=== PATIENT | female | born 1995 | race American Indian/Alaskan Native ===

== ENCOUNTER 2019-07-27 20:45 | Emergency (ER) | payer OTHER ==
[2019-07-27 23:09] VITALS: BP 120/73
--- NOTE | 2019-07-28 04:31 | Emergency Department Report ---
ED Headache HPI - General Chief Complaint: Headache Stated Complaint: SEEING BLACK DOTS/HEADACHE/NAUSEA/DIZZINESS Source: patient Exam Limitations: no limitations - History of Present Illness Initial Comments: Patient is a A2 25-year-old -[place] female who is approximately 20 weeks gestation and who has no past medical history and who presents to the ED with complaint of acute onset persistent severe intermittent bitemporal headache with nausea and vomiting and blurry vision for the last 8 hours. Patient states that the headache has been intermittent and that she has not taken any med ication at home prior to arrival in the ED. Patient states that the headache is since resolved as well as nausea and vomiting. Patient denies vaginal bleeding, abdominal pain, dizziness, vision loss, fall, traumatic injury, neck pain, chest pain, shortness of breath, fever, chills, cough or sore throat. Timing/Duration: constant, waxing and waning, other (8 hours) Quality: severe, constant Head Injury Location: temporal Recent Head Trauma: no recent headache/trauma Modifying Factors: improves with: other (20 weeks gestation) Associated Symptoms: denies symptoms, nausea/vomiting, vision changes (blurry vision). denies: confusion, fatigue, facial pain, fever/chills, flushing, loss of consciousness, nasal congestion, nasal drainage, numbness in legs/feet, seizures, sinus infection, stiff neck Allergies/Adverse Reactions: Allergies No Known Allergies Allergy (Verified 07/27/19 23:09) Home Medications: Ambulatory Orders Acetaminophen [Mapap] 500 mg PO Q6H PRN #30 tablet 07/28/19 Promethazine [Phenergan] 25 mg PO Q6HR PRN #30 tab 07/28/19 ED Review of Systems ROS: Stated complaint: SEEING BLACK DOTS/HEADACHE/NAUSEA/DIZZINESS Other details as noted in HPI Constitutional: denies: chills, fever Eyes: denies: eye pain, eye discharge, vision change ENT: denies: ear pain, throat pain Respiratory: denies: cough, shortness of breath, wheezing Cardiovascular: denies: chest pain, palpitations Endocrine: no symptoms reported Gastrointestinal: nausea, vomiting. denies: abdominal pain, diarrhea Genitourinary: denies: urgency, dysuria, discharge Musculoskeletal: denies: back pain, joint swelling, arthralgia Skin: denies: rash, lesions Neurological: headache. denies: weakness, paresthesias Psychiatric: denies: anxiety, depression Hematological/Lymphatic: denies: easy bleeding, easy bruising ED Past Medical Hx - Social History Smoking Status: Never Smoker Substance Use Type: None - Medications Home Medications: Home Medications Medication Instructions Recorded Confirmed Last Taken Type Acetaminophen [Mapap] 500 mg PO Q6H PRN #30 tablet 07/28/19 Unknown Rx Promethazine [Phenergan] 25 mg PO Q6HR PRN #30 tab 07/28/19 Unknown Rx ED Physical Exam - General Limitations: No Limitations General appearance: alert, in no apparent distress - Head Head exam: Present: atraumatic, normocephalic, normal inspection - Eye Eye exam: Present: normal appearance, PERRL, EOMI Pupils: Present: normal accommodation - ENT ENT exam: Present: normal exam, normal orophraynx, mucous membranes moist, TM's normal bilaterally, normal external ear exam - Neck Neck exam: Present: normal inspection, full ROM - Respiratory Respiratory exam: Present: normal lung sounds bilaterally. Absent: respiratory distress, wheezes, rales, chest wall tenderness - Cardiovascular Cardiovascular Exam: Present: regular rate, normal rhythm, normal heart sounds. Absent: systolic murmur, diastolic murmur, rubs, gallop - GI/Abdominal GI/Abdominal exam: Present: soft, normal bowel sounds. Absent: tenderness, guarding, rebound, hyperactive bowel sounds, hypoactive bowel sounds, organomegaly - Extremities Exam Extremities exam: Present: normal inspection, full ROM, normal capillary refill - Back Exam Back exam: Present: normal inspection, full ROM. Absent: muscle spasm, paraspinal tenderness - Neurological Exam Neurological exam: Present: alert, oriented X3, CN II-XII intact, normal gait, reflexes normal - Psychiatric Psychiatric exam: Present: normal affect, normal mood - Skin Skin exam: Present: warm, dry, intact, normal color. Absent: rash ED Course Vital Signs 07/27/19 22:50 Temperature 98.6 F Pulse Rate 94 H Respiratory 18 Rate Blood Pressure 120/73 O2 Sat by Pulse 98 Oximetry ED Medical Decision Making - Medical Decision Making This is a 25-year-old female who is approximately 20 weeks gestation and who presented to the ED with persistent headache with intermittent nausea and vomiting and blurry vision. In the ED, patient is alert and oriented x3 and is not in distress with normal vital signs. Patient stated that her headache and nausea and vomiting have resolved. Physical exam is unremarkable and patient is hemodynamically stable. Patient was discharged home on medications for nausea and vomiting as well as for pain. Patient was advised to follow-up with [employer] physician in 5 to 7 days for reevaluation or return to the ED immediately if symptoms get worse. - Differential Diagnosis Tension headache; dehydration; Flu; URI Critical care attestation.: If time is entered above; I have spent that time in minutes in the direct care of this critically ill patient, excluding procedure time. ED Disposition Clinical Impression: Nausea/vomiting in Acute tension-type headache Qualifiers: Intractability: not intractable Qualified Code(s): G44.209 - Tension-type headache, unspecified, not intractable Disposition: DC- TO HOME OR SELFCARE Is pt being admited?: No Does the pt Need Aspirin: No Condition: Stable Instructions: Tension Headache (ED), Acute Nausea and Vomiting (ED) Additional Instructions: Take medications with food, drink plenty of fluids and follow-up with your primary care physician or [employer] physician in 5 to 7 days for reevaluation. Return to the ED immediately if symptoms get worse. Prescriptions: Acetaminophen [Mapap] 500 mg PO Q6H PRN #30 tablet PRN Reason: Pain , Severe (7-10) Promethazine [Phenergan] 25 mg PO Q6HR PRN #30 tab PRN Reason: Nausea Referrals: LUNA NOLAND MD [Staff Physician] - 3-5 Days Forms: Work/School Release Form(ED) Time of Disposition: 04:36 Print Language: ICELANDIC
== END 2019-07-28 04:45 | disposition home or self-care (01) ==
LOC: ED 20:45
DX: O26.892 Other specified pregnancy related conditions, second trimester (principal); G44.209 Tension-type headache, unspecified, not intractable; Z3A.20 20 weeks gestation of pregnancy
CPT/HCPCS: 99282

== ENCOUNTER 2019-12-10 00:21 | Inpatient (IN) | payer OTHER ==
[2019-12-10] MEDS ORDERED: LIDOCAINE (2%) 20 MG/1 ML VIAL 20 ML MDV INFILTRATI ONE (00:55)
[2019-12-10] MEDS ORDERED: MINERAL OIL 30 ML ORAL LIQD PO PRN (00:55)
[2019-12-10] MEDS ORDERED: TERBUTALINE 1 MG/1 ML INJ IVP PRN (00:55)
[2019-12-10] MEDS ORDERED: TERBUTALINE 1 MG/1 ML INJ SUB-Q PRN (00:55)
[2019-12-10] MEDS ORDERED: ePHEDrine SULFATE 50 MG/1 ML INJ IV PRN ×2 (00:55→02:21)
[2019-12-10] MEDS ORDERED: LACTATED RINGERS 1,000 ML ONE (00:57)
[2019-12-10] MEDS ORDERED: OXYTOCIN 20 UNIT/1000ML DRIP 20 UNITS/1,000 ML BAG IV SCH (01:00)
[2019-12-10] MEDS ORDERED: LACTATED RINGERS 1,000 ML IV SCH (01:00)
--- NOTE | 2019-12-10 01:47 | History and Physical Report ---
History of Present Illness Date of examination: 12/10/19 (Patient arrived to triage in active labor) Date of admission: 12/10/2019 Chief complaint: Contractions and back pain History of present illness: Pt presents with complaint of contractions and low back pain since 0. She denies bleeding or LOF and reports good movement. 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: abnormal PAP smear, chlamydia, gonorrhea, hepatitis B, herpes, HIV, syphilis Family/Genetic History: none Social history: no significant social history, single - Obstetrical History Expected Date of Delivery: 12/08/19 Actual Gestation: 40 Week(s) 2 Day(s) : 3 Para: 0 Hx # Term Pregnancies: 0 Number of Pregnancies: 0 Spontaneous Abortions: 0 Induced : 0 Number of Living Children: 0 Medications and Allergies Allergies Allergy/AdvReac Type Severity Reaction Status Date / Time No Known Allergies Allergy Verified 07/27/19 23:09 Home Medications Medication Instructions Recorded Confirmed Last Taken Type Acetaminophen [Mapap] 500 mg PO Q6H PRN #30 tablet 07/28/19 Unknown Rx Promethazine [Phenergan] 25 mg PO Q6HR PRN #30 tab 07/28/19 Unknown Rx Active Meds: Active Medications Ephedrine Sulfate (Ephedrine Sulfate) 10 mg IV Q2M PRN PRN Reason: Hypotension Lactated Ringer's (Lactated Ringers) Confirm Administered Dose 1,000 mls @ as directed .ROUTE .STK-MED ONE Stop: 12/10/19 00:58 Oxytocin/Sodium Chloride (Pitocin/Ns 20 Unit/1000ml Drip) 20 units in 1,000 mls @ 125 mls/hr IV DIRECT ERLIN Lactated Ringer's (Lactated Ringers) 1,000 mls @ 125 mls/hr IV DIRECT ERLIN Mineral Oil (Mineral Oil) 30 ml PO QHS PRN PRN Reason: Constipation Terbutaline Sulfate (Brethine) 0.25 mg SUB-Q ONCE PRN PRN Reason: Hyperstimulation/Hypertonicity Terbutaline Sulfate (Brethine) 0.25 mg IVP ONCE PRN PRN Reason: Hyperstimulation/Hypertonicity Review of Systems Constitutional: no fever, no chills Eyes: no blurred vision Ears, nose, mouth and throat: deferred Cardiovascular: no chest pain, no edema Respiratory: no cough, no shortness of breath Gastrointestinal: no nausea, no diarrhea, no constipation Genitourinary: no leakage of fluid Rectal Exam: deferred Musculoskeletal: low back pain, no frequent falls Neurological: no weakness, no seizures, no headaches Psychiatric: no anxiety Endocrine: no excessive thirst, no excessive sweating, no palpatations Allergic/Immunologic: no urticaria - Vital Signs Vital signs: Vital Signs Temp Resp 97.6 F 18 12/10/19 00:45 12/10/19 00:45 Temp Pulse Resp BP Pulse Ox 98 F 73 18 123/84 96 12/10/19 01:36 12/10/19 01:36 12/10/19 01:36 12/10/19 01:36 12/10/19 00:53 - Physical Exam Breasts: Positive: normal Cardiovascular: Regular rate, Normal S1, Normal S2 Lungs: Positive: Normal air movement Abdomen: Positive: normal appearance, soft, normal bowel sounds. Negative: distention, tenderness Genitourinary (Female): Positive: normal external genitalia Vulva: both: normal Vagina: Positive: normal moisture. Negative: discharge Cervix: Negative: lesion, discharge Uterus: Positive: normal size, normal contour Adnexa: both: normal Anus/Rectum: Positive: normal perianal skin, heme negative. Negative: rectal mass, hemorrhoids Extremities: Positive: normal Deep Tendon Reflex Grade: Normal +2 - Obstetrical FHR: category 1 Uterine Contraction Monitor Mode: External Cervical Dilatation: 4 Cervical Effacement Percentage: 80 station: -1 Uterine Contraction Pattern: Regular Uterine Contraction Intensity: Moderate Results Result Diagrams: 12/10/19 00:55 GBS NEGATIVE HBsAg Screen Negative Negative *1 RPR Non Reactive Non Reactive *2 Rubella Antibodies, IgG 16.30 index Immune >0.99 *3 Non-immune <0.90 Equivocal 0.90 - 0.99 Immune >0.99 ABO Grouping O *4 Rh Factor Positive *5 Please note: Prior records for this patient's ABO / Rh type are not available for additional verification. Antibody Screen Negative Negative *6 WBC [H] 11.1 x10E3/uL 3.4-10.8 *7 RBC 4.30 x10E6/uL 3.77-5.28 *8 Hemoglobin 13.3 g/dL 11.1-15.9 *9 Hematocrit 41.2 % 34.0-46.6 *10 MCV 96 fL 79-97 *11 MCH 30.9 pg 26.6-33.0 *12 MCHC 32.3 g/dL 31.5-35.7 *13 RDW 14.0 % 11.7-15.4 *14 Platelets 217 x10E3/uL 150-450 *15 Neutrophils 74 % Not Estab. *16 Lymphs 19 % Not Estab. *17 Monocytes 6 % Not Estab. *18 Eos 1 % Not Estab. *19 Basos 0 % Not Estab. *20 ! Immature Cells <No Reported Value> *21 Neutrophils (Absolute) [H] 8.2 x10E3/uL 1.4-7.0 *22 Lymphs (Absolute) 2.1 x10E3/uL 0.7-3.1 *23 Monocytes(Absolute) 0.7 x10E3/uL 0.1-0.9 *24 Eos (Absolute) 0.1 x10E3/uL 0.0-0.4 *25 Baso (Absolute) 0.0 x10E3/uL 0.0-0.2 *26 ! Immature Granulocytes 0 % Not Estab. *27 ! Immature Grans (Abs) 0.0 x10E3/uL 0.0-0.1 *28 ! NRBC <No Reported Value> *29 Hematology Comments: <No Reported Value> *30 Tests: (2) AFP Tetra ([id number]) ! Results Report *31 ! Test Results: *Screen Negative* *32 ! Gest. Age on Collection Date 19.6 WEEKS *33 ! Gestat. Age Based On Ultrasound *34 19.6 on 07/18/2019 ! M[age] VIKA [age] yr *35 ! Race Other *36 ! Weight 174 lbs *37 ! Insulin Dep Diabetes No *38 ! Multiple Gestation No *39 ! AFP Value 50.5 ng/mL *40 ! AFP MoM 1.04 *41 ! hCG Value 50008 mIU/mL *42 ! hCG MoM 0.79 *43 ! uE3 Value 2.63 ng/mL *44 ! uE3 MoM 1.46 *45 ! LOVELY Value 97.68 pg/mL *46 ! LOVELY MoM 0.58 *47 ! OSBR Risk 1 [place] [address] *48 ! DSR (Second Trimester) 1 [place] [address] *49 ! DSR (By Age) 1 IN 1114 *50 ! T18 Risk Not increased *51 ! T18 (By Age) 1:4339 *52 ! Interpretation NL42 *53 Interpretation: Screen Negative This result is screen negative for OSB, Down Syndrome and Trisomy 18. The AFP MoM and patient specific risks calculated are based on the gestational age and the clinical information provided. This test can identify up to 80% of open neural tube defects. Closed neural tube defects and some open defects may not be detected by this test. The combination of maternal age, AFP, hCG, uE3, and LOVELY identifies 75-80% of Down Syndrome. The combination of maternal age, AFP, hCG and uE3 identifies 60% of Trisomy 18 pregnancies. The [employer] recommends amniocentesis be offered to women age 35 and older. Recalculations are not recommended when gestational dating by LMP and ultrasound are within 10 days. ! Comments: SPR *54 Regine Otero, Ph.D., [facility] Principal [employer]etics [employer] References: Available Upon Request. Multiples Of Median Cutoffs Abbreviation Definitions For AFP Elevations IDD- Insulin Dep Diabetes Ann 2.5 Black 2.8 OSBR- Open Spina Bifida IDD 2.0 Twins 4.5 Risk DSR Cutoff 1:270 DSR- Down Syndrome Risk T18 Cutoff 1:100 T18- Trisomy 18 Down Syndrome and Trisomy 18 screening are considered Investigational For further inquiries contact [facility] at [phone]. Tests: (3) HIV Ag/Ab with Reflex ([id number]) HIV Screen 4th Generation wRfx Non Reactive Non Reactive *55 Tests: (4) HCV Ab w/Rflx to Verification ([id number]) ! HCV Ab <0.1 s/co ratio 0.0-0.9 *56 Tests: (5) Comment: ([id number]) ! Comment: SPRCS *57 Non reactive HCV antibody screen is consistent with no HCV infection, unless recent infection is suspected or other evidence exists to indicate HCV infection. Tests: (6) Urine Culture, Routine ([id number]) Urine Culture, Routine Final report *58 Tests: (7) Result ([id number]) ! Result 1 "Result Below..." *59 RESULT: Lactobacillus species 10,000-25,000 colony forming units per mL Susceptibility not normally performed on this organism. Assessment and Plan @ 40 weeks 2 days in active labor at 4/80/-1 per nurse exam, non GBS carrier. Epidural when desired. Records reviewed, admission labs pending. - Patient Problems (1) Active labor at term Onset Date: ~12/10/19 Current Visit: Yes Status: Acute Plan to address problem: Routine admission to labor unit. Epidural when desired. Continuous EFM once epidural in place. Patient may ambulate in room with monitoring. Pitocin augmentation prn. GBS negative. Expected management at this time. (2) 40 weeks gestation of Onset Date: ~12/10/19 Current Visit: Yes Status: Acute Plan to address problem: Expected management for term IUP in active labor. Epidural when desired. records reviewed and placed in chart. O+/Immune, GBS negative..
[2019-12-10 01:49] LABS: Hematocrit 36.9 % (30.3-42.9); Hemoglobin 12.1 gm/dl (10.1-14.3); Mean Corpuscular HGB Conc 33 % (30-34); Mean Corpuscular Volume 90 fl (79-97); Platelet Count 234 K/mm3 (140-440); Red Cell Distribution Width 13.3 % (13.2-15.2)
[2019-12-10] MEDS ORDERED: DEXMEDETOMIDINE 200 MCG/2 ML VIAL IV ONE (02:17)
[2019-12-10] MEDS ORDERED: NALOXONE 2 MG/2 ML INJ IV PRN (02:21)
[2019-12-10] MEDS ORDERED: fentaNYL-BUPIV 2 MCG/ML-0.125% 200 MCG/100 ML BAG EPIDURAL SCH (03:00)
--- NOTE | 2019-12-10 03:11 | Anesthesia Consultation ---
Anesthesia Consult and Med Hx Date of service: 12/10/19 - Airway Anesthetic Teeth Evaluation: Good ROM Head & Neck: Adequate Mental/Hyoid Distance: Adequate Mallampati Class: Class II Intubation Access Assessment: Good - Pulmonary Exam CTA: Yes - Cardiac Exam Cardiac Exam: RRR - Pre-Operative Health Status ASA Pre-Surgery Classification: ASA2 Proposed Anesthetic Plan: Epidural - Pulmonary Hx Smoking: Yes (stop 9 months ago) Hx Asthma: No Hx Respiratory Symptoms: No SOB: No COPD: No Home Oxygen Therapy: No Hx Pneumonia: No Hx Sleep Apnea: No - Cardiovascular System Hx Hypertension: No Hx Coronary Artery Disease: No Hx Heart Attack/AMI: No Hx Angina: No Hx Percutaneous Transluminal Coronary Angioplasty (PTCA): No Hx Cardia Arrhythmia: No Hx Pacemaker: No Hx Internal Defibrillator: No Hx Valvular Heart Disease: No Hx Heart Murmur: No Hx Peripheral Vascular Disease: No - Central Nervous System Hx Neuromuscular Disorder: No Hx Seizures: No CVA: No Hx Back Pain: No Hx Psychiatric Problems: No - Gastrointestinal Hx Ulcer: No Hx Gastroesophageal Reflux Disease: No - Endocrine Hx Renal Disease: No Hx End Stage Renal Disease: No Hx Cirrhosis: No Hx Liver Disease: No Hx Insulin Dependent Diabetes: No Hx Non-Insulin Dependent Diabetes: No Hx Thyroid Disease: No Hx Hypothyroidism: No Hx Hyperthyroidism: No - Hematic Hx Anemia: No Hx Sickle Cell Disease: No - Other Systems Hx Alcohol Use: No Hx Substance Use: No Hx Cancer: No Hx Obesity: No
--- NOTE | 2019-12-10 03:26 | Event Note ---
Date: 12/10/19 (epidural in and comfortable) Epidural in and patient is comfortable. SVE /1, SROM clear small. ISE and IUPC placed.
--- NOTE | 2019-12-10 03:28 | Progress Note ---
Labor Epidural - Labor Epidural Start Time: 02:19 Stop Time: 02:54 Performed by:: OMAR CHAMBERLAIN (SAMMIE Morris) Procedure: Patient is requesting a laboring epidural for laboring pain. Patient IDed, H&P reviewed, all questions and concerns were answered, and consent was signed. Timeout was performed at bedside. Patient in sitting position. Sterile prep and drape was performed. [3] ml of 1% lidocaine skin wheal at L[4]- L [5]. 18- gauge Touhy epidural needle was advanced to loss of resistance with Saline technique to 7 cm. Negative CSF via 27g spinal needle. Tuohy needle removed. [2] ml of 1% lidocaine skin wheal in at L[3]- L [4]. 18-gauge Touhy epidural needle was advanced to loss of resistance with Saline technique to 7 cm. #27g Spinal needle negative CSF. Tuohy needle repositioned by Omar Chamberlain, KEVIN, CARLY to air to 7 cm, clear, free flowing CSF, Pecedex 10 mcg. Epidural catheter advanced easily to [12] centimeters. [negative] Aspiration [negative] test dose. Sterile dressing applied. Patient tolerated procedure.
[2019-12-10] MEDS ORDERED: BUPIVACAINE/PF (0.25%) 2.5 MG/ML 10 ML VIAL INFILTRATI ONE (03:56)
[2019-12-10] MEDS ORDERED: ONDANSETRON 4 MG/2 ML INJ IV ONE (05:38)
[2019-12-10] MEDS ORDERED: MAGNESIUM HYDROXIDE (MOM) ORAL LIQD UDC PO PRN (06:37)
[2019-12-10] MEDS ORDERED: WITCH HAZEL/ GLYCERIN PAD TP PRN (06:37)
[2019-12-10] MEDS ORDERED: ONDANSETRON 4 MG/2 ML INJ IV PRN (06:37)
[2019-12-10] MEDS ORDERED: LANOLIN/ZINC/DIMETHICONE (LANSINOH) 7 GM TP PRN (06:37)
[2019-12-10] MEDS ORDERED: PROMETHAZINE 25 MG TAB PO PRN (06:37)
[2019-12-10] MEDS ORDERED: ACETAMINOPHEN 325 MG TAB PO PRN (06:37)
[2019-12-10] MEDS ORDERED: diphenhydrAMINE 25 MG CAP PO PRN (06:37)
--- NOTE | 2019-12-10 06:42 | Procedure Note ---
OB Delivery Note - Delivery Date of Delivery: 12/10/19 Front Worker: JOHN PAREDES (Antony GALLOWAY) Estimated blood loss: other (400cc) - Vaginal Delivery presentation: vertex Delivery position: OA Intrapartum events: none Delivery induction: none Delivery monitor: internal FHT, internal uterine Route of delivery: Delivery placenta: spontaneous Delivery cord: 3 umbilical vessels Episiotomy: none Delivery laceration: 2nd degree, other (1cm hematoma on left labia ligated with figure of 8 stitch; no increase in size noted) Delivery repair: vicryl Anesthesia: epidural Delivery comments: ROSALIA in room, Counts correct sponge, instruments, and needles. male infant over intact perineum. Placed on maternal abdomen skin to skin. Cord blood obtained. Apgars 8/9 at 1 and 5 minutes respectively. Placenta delivered spontaneously intact, 3 vessel cord. Pitocin IVFs bolusing. 2nd degree vaginal laceration repaired with 3-0 vicryl suture. Left posterior vaginal hematoma sutured with 3-0 vicryl,, good hemostasis obtained. Patient cleaned and pads placed. EBL 400 ml. Weight 8#5 - Infant A at 1 minute: 8 at 5 minutes: 9 Gender: Male ([facility] Weight 8#5)
[2019-12-10] MEDS: DOCUSATE SODIUM 100 MG CAP PO SCH ×2 (12:36→22:04)
[2019-12-10] MEDS: PRENATAL VIT27-FE FUMARATE-FOLIC ACID VIT TAB PO SCH (12:36)
--- NOTE | 2019-12-10 13:28 | Post Anesthesia Evaluation ---
- Post Anesthesia Evaluation Patient Participated: Yes Airway Patent: Yes Stable Respiratory Function: Yes Nausea/Vomiting: No Temp > 96.8F: Yes Pain Manageable: Yes Adequeate Hydration: Yes Anesthesia Complications: No Block Receding Appropriately: Yes Patient on Ventilator: No
[2019-12-10] MEDS: IBUPROFEN 800 MG TAB PO SCH ×2 (13:47→22:04)
[2019-12-10] MEDS: HYDROcodone/ACETAMINOPHEN 5-325 MG TAB PO PRN (17:12)
[2019-12-10 19:23] LABS: Hematocrit 32.5 % (30.3-42.9); Hemoglobin 10.7 gm/dl (10.1-14.3)
[2019-12-11] MEDS: IBUPROFEN 800 MG TAB PO SCH (05:22)
[2019-12-11] MEDS ORDERED: DIPHtheria,PERTUSSIS(ACELL),TETANUS VACCINE/PF 0.5 ML VIAL IM ONE (06:00)
[2019-12-11] MEDS ORDERED: MEASLES, MUMPS & RUBELLA 12,500 UNIT/0.5 ML VACCINE SUB-Q ONE (06:37)
--- NOTE | 2019-12-11 07:47 | Discharge Summary ---
Providers - Providers Date of Admission: 12/10/19 01:41 Date of discharge: 12/11/19 (Pt stable for discharge home.) Attending physician: SLOAN SUGGS Primary care physician: SLOAN SUGGS Hospitalization Reason for admission: active labor Delivery: Episiotomy: none Laceration: 2nd degree (Repaired), other (labial hematoma, ligated ) Other procedures: none complications: hematoma (On labia after delivery, ligated with figure of 8 stitch. No edema, swelling noted today. ) Discharge diagnosis: IUP at term delivered [place] baby: male Hospital course: S: Pt doing well. Voiding, ambulating, and passing flatus without difficulty. BC: Pills. O: VSS. H/H . Fundus firm, minimal bleeding noted. No edema to perineum noted. A: 24 y.o. s/p @ term. Stable for discharge home. P: Discharge home with instructions. To schedule a circumcision in 1 week with office. To schedule visit in 4 weeks in office. Condition at discharge: Good Disposition: DC-01 TO HOME OR SELFCARE Plan - Discharge Medications Prescriptions: Lidocain2.5%/Prilocai2.5% [Emla] 5 gm TP PRN #1 tube Ibuprofen [Motrin 800 MG tab] 800 mg PO TID PRN #30 tablet PRN Reason: Pain - Provider Discharge Summary Activity: routine, no sex for 6 weeks, no heavy lifting 4 weeks, no strenuous exercise Diet: routine Instructions: routine Additional instructions: [] Smoking cessation referral if applicable(refer to patient education folder for contact #) [] Refer to [facility]'s [facility] Booklet Call your doctor immediately for: * Fever > 100.5 * Heavy vaginal bleeding ( >1 pad per hour) * Severe persistent headache * Shortness of breath * Reddened, hot, painful area to leg or breast * Drainage or odor from incision. * Keep incision clean and dry at all times and follow doctor's instructions regarding bathing/showering - Follow up plan Follow up: SLOAN SUGGS MD [Primary Care Provider] - 7 Days (Congratulations!!! Please schedule a visit in the office in 4 weeks. Please schedule your circumcision appointment in the office in 1 week. You have been prescribed EMLA cream. Please do not use the cream at home, but bring it with you to your son's circumcision appointment. If you have any questions or concerns after discharge, please do not hesitate to call the office @ [phone]. )
[2019-12-11] MEDS: HYDROcodone/ACETAMINOPHEN 5-325 MG TAB PO PRN (10:39)
[2019-12-11] MEDS: PRENATAL VIT27-FE FUMARATE-FOLIC ACID VIT TAB PO SCH (10:39)
[2019-12-11] MEDS: DOCUSATE SODIUM 100 MG CAP PO SCH (10:39)
[2019-12-11 12:19] VITALS: BP 112/72
== END 2019-12-11 14:20 | disposition home or self-care (01) | DRG 775 ==
LOC: TRG 00:21 → APU 00:22 → TRG 01:41 → APU 01:41 → LD 06:34 → OB 08:30
PROVIDERS: ADMIT Obstetrics & Gynecology; ATTEND Obstetrics & Gynecology
PROC: 10E0XZZ Delivery of Products of Conception, External Approach (ICD-10-PCS; principal; 2019-12-10)
PROC: 0KQM0ZZ Repair Perineum Muscle, Open Approach (ICD-10-PCS; 2019-12-10)
PROC: 0W3J0ZZ Control Bleeding in Pelvic Cavity, Open Approach (ICD-10-PCS; 2019-12-10)
PROC: 3E0R3BZ Introduction of Anesthetic Agent into Spinal Canal, Percutaneous Approach (ICD-10-PCS; 2019-12-10)
PROC: 00HU33Z Insertion of Infusion Device into Spinal Canal, Percutaneous Approach (ICD-10-PCS; 2019-12-10)
PROC: 10H07YZ Insertion of Other Device into Products of Conception, Via Natural or Artificial Opening (ICD-10-PCS; 2019-12-10)
PROC: 10H073Z Insertion of Monitoring Electrode into Products of Conception, Via Natural or Artificial Opening (ICD-10-PCS; 2019-12-10)
PROC: 3E0234Z Introduction of Serum, Toxoid and Vaccine into Muscle, Percutaneous Approach (ICD-10-PCS; 2019-12-11)
PROC: 3E0134Z Introduction of Serum, Toxoid and Vaccine into Subcutaneous Tissue, Percutaneous Approach (ICD-10-PCS; 2019-12-11)
DX: O70.1 Second degree perineal laceration during delivery (principal); Z37.0 Single live birth; O71.7 Obstetric hematoma of pelvis; Z3A.40 40 weeks gestation of pregnancy; Z87.891 Personal history of nicotine dependence; Z79.899 Other long term (current) drug therapy; Z23 Encounter for immunization
CPT/HCPCS: 36415; 59025; 85014; 85018; 85027; 86592; 86850; 86900; 86901; G0378; A6250; J2405; J2590; J3490; J7120; Q0177

== ENCOUNTER 2021-01-22 20:46 | Emergency (ER) | payer OTHER ==
[2021-01-22 23:21] VITALS: BP 126/87
--- NOTE | 2021-01-22 23:25 | Emergency Department Report ---
ED General Adult HPI - General Chief complaint: Headache Stated complaint: HEADACHES/KNOT IN HEAD Source: patient Mode of arrival: Ambulatory Limitations: No Limitations - History of Present Illness Initial comments: Patient is a 25-year-old -[place] with no past medical history who presents to the ED with complaint of persistent left temporal headache with painful swollen mild erythematous rash on the left temporal scalp for the last 2 days. Patient states that she has not been able to sleep because of persistent pain and headache. Patient also complains of chills. Patient denies traumatic injury, fall, dizziness, syncope, chest pain, shortness of breath, nausea and vomiting, cough, nasal and sinus congestion, sore throat, neck pain, back pain, fever and chills. MD Complaint: Painful swollen rash on left anabaptism; headache -: Sudden, days(s) (3) Location: head Radiation: non-radiation Quality: aching, sharp Consistency: constant Improves with: none Worsens with: none Associated Symptoms: denies other symptoms, headaches, rash (mildly erythematous painful swollen rash on left temporal scalp). denies: confusion, chest pain, cough, diaphoresis, fever/chills, loss of appetite, malaise, nausea/vomiting, shortness of breath, syncope, weakness Treatments Prior to Arrival: none - Related Data Previous Rx's Medication Instructions Recorded Last Taken Type Acetaminophen [Mapap] 500 mg PO Q6H PRN #30 tablet 07/28/19 Unknown Rx Promethazine [Phenergan] 25 mg PO Q6HR PRN #30 tab 07/28/19 Unknown Rx Ibuprofen [Motrin 800 MG tab] 800 mg PO TID PRN #30 tablet 12/11/19 Unknown Rx Lidocain2.5%/Prilocai2.5% [Emla] 5 gm TP PRN #1 tube 12/11/19 Unknown Rx Butalb/Acetamin/Caff 50-325-40 1 - 2 tab PO Q6HR PRN #12 tab 01/22/21 Unknown Rx [Fioricet 50-325-40] Doxycycline Hyclate 100 mg PO Q12H #20 capsule 01/22/21 Unknown Rx Ibuprofen [Motrin] 600 mg PO Q8H PRN #24 tablet 01/22/21 Unknown Rx Allergies Allergy/AdvReac Type Severity Reaction Status Date / Time No Known Allergies Allergy Verified 01/22/21 22:59 ED Review of Systems ROS: Stated complaint: HEADACHES/KNOT IN HEAD Other details as noted in HPI Constitutional: denies: chills, fever Eyes: denies: eye pain, eye discharge, vision change ENT: denies: ear pain, throat pain Respiratory: denies: cough, shortness of breath, wheezing Cardiovascular: denies: chest pain, palpitations Endocrine: no symptoms reported Gastrointestinal: denies: abdominal pain, nausea, vomiting, diarrhea Genitourinary: denies: urgency, dysuria, discharge Musculoskeletal: denies: back pain, joint swelling, arthralgia Skin: rash (swollen mildly erythematous rash on left temporal scalp). denies: lesions Neurological: denies: headache, weakness, paresthesias Psychiatric: denies: anxiety, depression Hematological/Lymphatic: denies: easy bleeding, easy bruising ED Past Medical Hx - Past Medical History Hx Hypertension: No Hx Heart Attack/AMI: No Hx Diabetes: No Hx Deep Vein Thrombosis: No Hx Liver Disease: No Hx Renal Disease: No Hx Sickle Cell Disease: No Hx Seizures: No Hx Asthma: No Hx COPD: No Hx HIV: No - Surgical History Hx Pacemaker: No Hx Internal Defibrillator: No - Social History Smoking Status: Never Smoker - Medications Home Medications: Home Medications Medication Instructions Recorded Confirmed Last Taken Type Acetaminophen [Mapap] 500 mg PO Q6H PRN #30 tablet 07/28/19 12/10/19 Unknown Rx Promethazine [Phenergan] 25 mg PO Q6HR PRN #30 tab 07/28/19 12/10/19 Unknown Rx Ibuprofen [Motrin 800 MG tab] 800 mg PO TID PRN #30 tablet 12/11/19 Unknown Rx Lidocain2.5%/Prilocai2.5% [Emla] 5 gm TP PRN #1 tube 12/11/19 Unknown Rx Butalb/Acetamin/Caff 50-325-40 1 - 2 tab PO Q6HR PRN #12 tab 01/22/21 Unknown Rx [Fioricet 50-325-40] Doxycycline Hyclate 100 mg PO Q12H #20 capsule 01/22/21 Unknown Rx Ibuprofen [Motrin] 600 mg PO Q8H PRN #24 tablet 01/22/21 Unknown Rx ED Physical Exam - General Limitations: No Limitations General appearance: alert, in no apparent distress - Head Head exam: Present: atraumatic, normocephalic, normal inspection - Eye Eye exam: Present: normal appearance, PERRL, EOMI Pupils: Present: normal accommodation - ENT ENT exam: Present: normal exam, normal orophraynx, mucous membranes moist, TM's normal bilaterally, normal external ear exam - Neck Neck exam: Present: normal inspection, full ROM - Respiratory Respiratory exam: Present: normal lung sounds bilaterally. Absent: respiratory distress, wheezes, rales, rhonchi, chest wall tenderness, accessory muscle use, decreased breath sounds, prolonged expiratory - Cardiovascular Cardiovascular Exam: Present: regular rate, normal rhythm, normal heart sounds. Absent: systolic murmur, diastolic murmur, rubs, gallop - GI/Abdominal GI/Abdominal exam: Present: soft, normal bowel sounds. Absent: tenderness, guarding, rebound, hyperactive bowel sounds, hypoactive bowel sounds, organomegaly - Extremities Exam Extremities exam: Present: normal inspection, full ROM, normal capillary refill - Back Exam Back exam: Present: normal inspection, full ROM. Absent: tenderness, CVA tenderness (R), CVA tenderness (L), muscle spasm, paraspinal tenderness - Neurological Exam Neurological exam: Present: alert, oriented X3, CN II-XII intact, normal gait, reflexes normal - Psychiatric Psychiatric exam: Present: normal affect, normal mood - Skin Skin exam: Present: warm, dry, intact, normal color. Absent: rash ED Course Vital Signs 01/22/21 22:59 Temperature 98.3 F Pulse Rate 70 Respiratory 16 Rate Blood Pressure 126/87 O2 Sat by Pulse 100 Oximetry ED Medical Decision Making - Medical Decision Making This is a 25-year-old -[place] with no past medical history who presents to the ED with complaint of persistent left temporal headache with painful swollen mild erythematous rash on the left temporal scalp for the last 2 days. Patient states that she has not been able to sleep because of persistent pain and headache. Patient also complains of chills. In the ED, patient is alert and oriented x3 and is not in any distress. Based on the history and physical exam findings, patient symptoms are likely due to acute folliculitis, causing the pain and headache. Patient is hemodynamically stable. Patient will discharge home on medications and advised to follow-up with her primary care physician in 5 to 7 days for reevaluation or return to the ED immediately if symptoms get worse. - Differential Diagnosis acute folliculitis; cellulitis; cutaneous abscess Critical care attestation.: If time is entered above; I have spent that time in minutes in the direct care of this critically ill patient, excluding procedure time. ED Disposition Clinical Impression: Acute folliculitis Tension type headache Qualifiers: Headache chronicity pattern: acute headache Intractability: not intractable Qualified Code(s): G44.209 - Tension-type headache, unspecified, not intractable Disposition: 01 HOME / SELF CARE / HOMELESS Is pt being admited?: No Does the pt Need Aspirin: No Condition: Stable Instructions: Tension Headache, Adult, [id number], Folliculitis Additional Instructions: Take medications with food, drink plenty of fluids and follow up with your primary care physician in 7-10 days for reevaluation. Return to the ED immediately if symptoms get worse. Prescriptions: Doxycycline Hyclate 100 mg PO Q12H #20 capsule Butalb/Acetamin/Caff 50-325-40 [Fioricet 50-325-40] 1 - 2 tab PO Q6HR PRN #12 tab PRN Reason: Headache Ibuprofen [Motrin] 600 mg PO Q8H PRN #24 tablet PRN Reason: Pain Referrals: [facility] [Provider Group] - 3-5 Days Time of Disposition: 23:27 Print Language: OMANI
== END 2021-01-22 23:45 | disposition home or self-care (01) ==
LOC: ED 20:46
DX: L73.9 Follicular disorder, unspecified (principal); G44.209 Tension-type headache, unspecified, not intractable
CPT/HCPCS: 99281